=== PATIENT | male | born 1950 | race Caucasian/White ===

== ENCOUNTER 2019-10-03 13:30 | Inpatient (IN) | payer OTHER, BC ==
[~2019-10-03] VITALS: Ht 182.9 cm; Wt 89.4 kg
[2019-10-03 13:40] VITALS: BP 123/73
[2019-10-03 14:47] LABS: MCV 119.8 fL (80.0-100.0)
[2019-10-03 14:49] LABS: MCH 43.1 pg (26.0-34.0); RBC 1.41 mil/uL (4.50-6.00); RDW 17.5 % (10.5-14.5)
[2019-10-03 15:02] LABS: WBC 0.9 thou/uL (4.0-11.0)
[2019-10-03 15:03] LABS: HEMATOCRIT 16.9 % (42.0-52.0); HEMOGLOBIN 6.1 gm/dL (14.0-18.0)
[2019-10-03 15:18] LABS: CALCIUM 8.3 mg/dL (8.5-10.1); CREATININE 1.2 mg/dL (0.7-1.3); POTASSIUM 4.4 mmol/L (3.5-5.1)
[2019-10-03 15:25] LABS: ALBUMIN 3.4 g/dL (3.4-5.0); TOTAL BILIRUBIN 2.9 mg/dL (0.2-1.0); TOTAL PROTEIN 5.7 g/dL (6.4-8.2)
[2019-10-03 15:36] LABS: ABSOLUTE NEUTROPHILS 0.5 thou/uL (1.4-8.2)
[2019-10-03 15:37] LABS: ANISOCYTOSIS 1+; LARGE PLATELETS FEW; PLATELET COUNT 55 thou/uL (150-400); PLATELET ESTIMATE DECREASED
[2019-10-03 15:38] LABS: MACROCYTES 1+; OVALOCYTES 2+
[2019-10-03 15:46] LABS: % SATURATION 101 % (20-39); IRON 160 ug/dL (65-175); TIBC 158 ug/dL (250-450)
[2019-10-03] MEDS ORDERED: CARAFATE 1 GM TA1 GM PO (16:15)
[2019-10-03] MEDS ORDERED: ATACAND8 MG PO (16:16)
[2019-10-03] MEDS ORDERED: LEVO-T25 MCG PO (16:17)
[2019-10-03] MEDS ORDERED: PANTOPRAZOLE SO40 M1 PO (16:17)
[2019-10-03] MEDS ORDERED: PROPAFENONE 15150 MG PO (16:17)
[2019-10-03] MEDS ORDERED: ASA81BEC PO (16:18)
[2019-10-03 17:40] VITALS: BP 109/34
[2019-10-03 19:15] VITALS: BP 113/59
[2019-10-03 20:03] VITALS: BP 114/70
[2019-10-03] MEDS ORDERED: ATORVASTATIN CA10 MG PO (20:55)
[2019-10-03 23:00] VITALS: BP 108/57; BP 119/62; BP 120/60; BP 123/63
[2019-10-04 00:32] VITALS: BP 117/58
[2019-10-04 06:22] LABS: MCV 116.1 fL (80.0-100.0)
[2019-10-04 06:23] LABS: MCH 41.6 pg (26.0-34.0); MCHC 35.8 g/dL (28.0-37.0); RBC 1.57 mil/uL (4.50-6.00); RDW 21.5 % (10.5-14.5)
[2019-10-04 06:24] LABS: CALCIUM 8.1 mg/dL (8.5-10.1); CREATININE 1.1 mg/dL (0.7-1.3); POTASSIUM 4.1 mmol/L (3.5-5.1)
[2019-10-04 06:44] LABS: HEMATOCRIT 18.2 % (42.0-52.0); HEMOGLOBIN 6.5 gm/dL (14.0-18.0); WBC 0.8 thou/uL (4.0-11.0)
[2019-10-04 07:41] VITALS: BP 111/57
[2019-10-04 09:15] LABS: APTT 26.4 Seconds (24.5-32.8); INR 1.2; PROTIME 12.2 Seconds (9.3-11.4)
[2019-10-04 09:20] VITALS: BP 111/60; BP 111/62
[2019-10-04 09:43] LABS: FOLIC ACID 12.5 ng/mL (8.6-58.9)
[2019-10-04 15:17] VITALS: BP 104/60
[2019-10-04 19:55] VITALS: BP 105/62
[2019-10-05 05:30] LABS: HEMOGLOBIN 7.3 gm/dL (14.0-18.0)
[2019-10-05 05:33] LABS: HEMATOCRIT 20.4 % (42.0-52.0); MCH 38.7 pg (26.0-34.0); PLATELET COUNT 42 thou/uL (150-400); RDW 29.2 % (10.5-14.5)
[2019-10-05 05:38] LABS: ABSOLUTE RETIC COUNT 0.0631 10^6/uL; OBSERVED RETIC COUNT 3.32 % (0.6-2.6)
[2019-10-05 05:39] LABS: MCV 107.5 fL (80.0-100.0)
[2019-10-05 07:46] VITALS: BP 123/66
[2019-10-05 07:57] LABS: HEMATOCRIT 22.8 % (42.0-52.0); HEMOGLOBIN 8.2 gm/dL (14.0-18.0); MCH 38.6 pg (26.0-34.0); MCHC 35.9 g/dL (28.0-37.0); MCV 107.7 fL (80.0-100.0); RBC 2.11 mil/uL (4.50-6.00); RDW 29.3 % (10.5-14.5)
[2019-10-05 08:00] LABS: WBC 1.2 thou/uL (4.0-11.0)
--- NOTE | 2019-10-05 08:10 | HC ---
[facility] [place] [address] [place] [address] CONSULTATION Name: EMMETT MONTIEL Room #: 437-P [facility] [place] .R.#: [id number] Admission: 10/03/19 Attend Phys: Js Hess MD Discharge: Date of : 50 Report #: [id number] THIS REPORT FOR: cc: Rosaura Mccann MD,Emmett Weston MD, MD ~ CC: Rosaura Johnson MD REQUESTING PHYSICIAN: Js Hess M.D. HISTORY OF PRESENT ILLNESS: The patient is a 69-year-old gentleman admitted for fatigue. We are consulted for pancytopenia. He is a 69-year-old gentleman who has about an 8-month history of 40-pound weight loss. He also has weakness and fatigue. He has some stomach upset. He had an EGD maybe about a month ago and that showed some gastritis. Supposedly, biopsies were negative. His last colonoscopy was maybe a year ago. LABORATORY DATA: He had recent lab that was low and consistent with that drawn yesterday. Hemoglobin was 6.5, today 6.1; white count 0.9, today 0.8; platelet count 55,000, today pending. BUN 25, creatinine 1.2. AST 131. Total bilirubin 2.9, MCV 119.8. Iron 160, TIBC 150, percent saturation 100%. REVIEW OF SYSTEMS: The patient denies headache, visual troubles, swallowing troubles, mouth sores. Regarding neuropathy, maybe a little bit on his left forefinger. He is not aware of adenopathy. He did have some stomach upset, no blood in his urine or stool. No diarrhea. Trace ankle swelling. PAST MEDICAL HISTORY: Notable for maybe sleep apnea. Also chronic AFib, occurring after an angiogram done last year, also history of hypertension, I think, also the gastritis. FAMILY HISTORY: If I understand, no one else in the family with blood or cancer issues. He does have a brother who is an air turning machine feeder [place]. Not , no children. No pets. 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 PHYSICAL EXAMINATION: GENERAL: The patient appears his stated age. MOOD: He is alert and pleasant and conversant. NEUROLOGIC: Speech and thought pattern normal. Moving all extremities. SKIN: Without any rashes or ecchymosis. [address] [address] CONSULTATION Name: EMMETT MONTIEL Room #: 437-P [facility] IN ..#: [id number] Admission: 10/03/19 Attend Phys: Js Hess MD Discharge: Date of : 50 Report #: [id number] LUNGS: Appear to be clear with symmetric, unlabored respiration without rhonchi, rales or wheezes. HEART: Appears regular rate. LYMPHATICS: No enlarged lymph nodes in the supraclavicular, cervical, axillary or inguinal regions. ABDOMEN: Mildly obese. No hepatosplenomegaly. EXTREMITIES: There is some trace edema. ASSESSMENT AND PLAN: 1. Pancytopenia with macrocytosis as well as elevated total bilirubin, may be related to B12 deficiency or could be something more sinister such as a myelodysplasia or leukemia. We will also check for B12, folate, retic count, LDH, haptoglobin, peripheral smear review and check coags, also TSH; last ____ lab from Dr. Rosaura Mccann, his primary care physician. Small chance this could be medication related. We will need to get outside lab for time course. We will also tentatively plan for bone marrow biopsy tomorrow. I will check with Interventional Radiology. 2. Cytopenia with neutropenia. We will ask the nurse to place the patient in reverse neutropenic precaution and isolation. 3. History of atrial fibrillation. We will defer to others whether to continue the propafenone and Atacand/ARB. 4. History of gastritis. Continues with pantoprazole. Note this was begun about 2 months ago. I guess that could be on list of potential drug causes, though the macrocytosis is slightly worsened. 5. Anemia. Transfuse as needed. 6. Thrombocytopenia. We will check coags. Transfuse to keep above 20,000 or higher if bleeding. We will follow with you. <ELECTRONICALLY SIGNED> By: Emmett Villaseñor MD 10/05/19 0810 [id number] [id number] Emmett Villaseñor MD /nt
[2019-10-05 08:11] LABS: INR 1.1; PROTIME 11.7 Seconds (9.3-11.4)
[2019-10-05 09:35] LABS: ALBUMIN 3.3 g/dL (3.4-5.0); DIRECT BILIRUBIN 0.6 mg/dL (<0.1-0.2); TOTAL BILIRUBIN 2.1 mg/dL (0.2-1.0); TOTAL PROTEIN 5.4 g/dL (6.4-8.2)
[2019-10-05 13:21] LABS: ABSOLUTE NEUTROPHILS 0.4 thou/uL (1.4-8.2)
[2019-10-05 13:25] LABS: ANISOCYTOSIS 2+; MACROCYTES 1+; OVALOCYTES OCCASIONAL; POIKILOCYTOSIS 1+; TEARDROPS OCCASIONAL
[2019-10-05 13:26] LABS: HYPOCHROMASIA SLIGHT; PLATELET ESTIMATE MARKEDLY DECREASED
[2019-10-05 16:41] VITALS: BP 108/63
[2019-10-05 19:50] VITALS: BP 107/33
[2019-10-06 04:52] LABS: HEMOGLOBIN 6.9 gm/dL (14.0-18.0); RDW 28.7 % (10.5-14.5)
[2019-10-06 04:56] LABS: MCH 38.3 pg (26.0-34.0); MCHC 35.7 g/dL (28.0-37.0); MCV 107.4 fL (80.0-100.0); PLATELET COUNT 34 thou/uL (150-400); RBC 1.81 mil/uL (4.50-6.00)
[2019-10-06 05:04] LABS: HEMATOCRIT 19.4 % (42.0-52.0)
[2019-10-06 07:43] VITALS: BP 117/66
[2019-10-06 07:46] VITALS: BP 106/58; BP 110/62; BP 130/65; BP 132/58; BP 141/54
[2019-10-06 09:03] LABS: ABSOLUTE NEUTROPHILS 0.4 thou/uL (1.4-8.2); NUCLEATED RBCS 1 /100WBC
[2019-10-06 09:08] LABS: ANISOCYTOSIS 3+; OVALOCYTES 1+
[2019-10-06 09:10] LABS: POIKILOCYTOSIS SLIGHT
[2019-10-06 09:11] LABS: MACROCYTES 1+; MICROCYTES 1+
[2019-10-06 17:33] VITALS: BP 106/64
[2019-10-06 19:50] VITALS: BP 114/65
[2019-10-07 07:30] VITALS: BP 113/55
[2019-10-07 11:21] LABS: HEMOGLOBIN 8.3 gm/dL (14.0-18.0)
[2019-10-07 11:24] LABS: HEMATOCRIT 23.7 % (42.0-52.0); MCH 36.2 pg (26.0-34.0); MCV 103.2 fL (80.0-100.0); RBC 2.3 mil/uL (4.50-6.00); RDW 29.4 % (10.5-14.5)
[2019-10-07 11:35] LABS: WBC 0.9 thou/uL (4.0-11.0)
[2019-10-07 15:34] VITALS: BP 113/55
[2019-10-07 16:49] VITALS: BP 106/62
[2019-10-07 20:43] VITALS: BP 114/56
[2019-10-08 06:09] LABS: HEMOGLOBIN 7.5 gm/dL (14.0-18.0); RBC 2.08 mil/uL (4.50-6.00)
[2019-10-08 06:12] LABS: HEMATOCRIT 21.4 % (42.0-52.0); MCH 36.1 pg (26.0-34.0); MCHC 35.1 g/dL (28.0-37.0); RDW 29.7 % (10.5-14.5)
[2019-10-08 06:15] LABS: WBC 1.5 thou/uL (4.0-11.0)
[2019-10-08 07:25] VITALS: BP 121/65
[2019-10-08 17:40] VITALS: BP 118/64
[2019-10-08 19:47] VITALS: BP 109/59
[2019-10-09 06:36] LABS: HEMOGLOBIN 7.8 gm/dL (14.0-18.0); RDW 31.5 % (10.5-14.5)
[2019-10-09 06:39] LABS: HEMATOCRIT 22.7 % (42.0-52.0); MCH 36.2 pg (26.0-34.0); MCHC 34.3 g/dL (28.0-37.0); MCV 105.7 fL (80.0-100.0); RBC 2.15 mil/uL (4.50-6.00)
[2019-10-09 06:44] LABS: WBC 1.7 thou/uL (4.0-11.0)
[2019-10-09 17:18] VITALS: BP 116/64
[2019-10-09 20:05] VITALS: BP 122/55
[2019-10-10 05:37] LABS: HEMOGLOBIN 8.1 gm/dL (14.0-18.0)
[2019-10-10 05:39] LABS: HEMATOCRIT 23.7 % (42.0-52.0); MCH 36.4 pg (26.0-34.0); RBC 2.22 mil/uL (4.50-6.00)
[2019-10-10 09:07] LABS: HEMOGLOBIN 6.3 g/dL (13.0-17.7)
[2019-10-10] MEDS ORDERED: B12INJ IM (10:35)
[2019-10-10] MEDS ORDERED: SYNTHROID50 MCG PO (10:35)
[2019-10-10 12:11] VITALS: BP 122/55
[2019-10-10 12:13] VITALS: BP 122/55
== END 2019-10-10 13:50 | disposition home or self-care (01) | DRG 809 ==
LOC: ER 13:30 → EROBS 16:24 → 4S 16:24
PROVIDERS: Emergency Medicine; Internal Medicine; Internal Medicine Hematology & Oncology; Radiology Vascular & Interventional Radiology; ADMIT Hospitalist; ATTEND Hospitalist
PROC: 30233N1 Transfusion of Nonautologous Red Blood Cells into Peripheral Vein, Percutaneous Approach (ICD-10-PCS; principal; 2019-10-03)
DX: D61.818 Other pancytopenia (principal); E44.0 Moderate protein-calorie malnutrition; I48.20 Chronic atrial fibrillation, unspecified; D75.89 Other specified diseases of blood and blood-forming organs; D69.6 Thrombocytopenia, unspecified; R63.4 Abnormal weight loss; D46.9 Myelodysplastic syndrome, unspecified; E03.9 Hypothyroidism, unspecified; G47.00 Insomnia, unspecified; K59.00 Constipation, unspecified; K29.70 Gastritis, unspecified, without bleeding; R43.2 Parageusia; E53.8 Deficiency of other specified B group vitamins; F32.9 Major depressive disorder, single episode, unspecified; I10 Essential (primary) hypertension; G47.30 Sleep apnea, unspecified; Z79.899 Other long term (current) drug therapy; Z79.82 Long term (current) use of aspirin; Z91.030 Bee allergy status; Z68.26 Body mass index [BMI] 26.0-26.9, adult
CPT/HCPCS: 10195